=== PATIENT | male | born 1980 | race Caucasian/White ===

== ENCOUNTER 2023-06-30 10:22 | Emergency (ER) | payer OTHER, SELFPAY ==
[2023-06-30 10:24] VITALS: BP 116/85; PULSE 86; RESP 18; TEMP 36.3; O2SAT 100; BMI 29.0
--- NOTE | 2023-06-30 10:38 | CT_ITS ---
STUDY: CT ABDOMEN AND PELVIS WITH CONTRAST REASON FOR EXAM: Male, 43 years old. Left lower quadrant pain with localized peritonitis. RADIATION DOSAGE (If Supplied By Facility): CTDIvol = ( 15.08 ) mGy, DLP = ( 1099.53 ) mGycm TECHNIQUE: Transaxial images were obtained from the dome of the diaphragm to the symphysis pubis without oral contrast. IV 100mL Isovue-300 was administered. Sagittal and coronal images were reconstructed. Individualized dose optimization techniques were used for this CT. COMPARISON: None. FINDINGS: The visualized lung bases are unremarkable. The visualized portions of the heart are within normal limits. Normal liver. Normal gallbladder and extrahepatic biliary system. Normal spleen. Normal pancreas. Normal bilateral adrenal glands. Normal right kidney. Normal left kidney. Normal visualized stomach. There is evidence of a circumferential wall thickening of several small bowel loops in the left mid abdomen and left lower quadrant suggestive of possible enteritis. Mild degree of increased markings in the small bowel mesentery. Fluid-filled distal small bowel loops. Normal colon. The appendix is visualized and appears normal. Normal abdominal aorta. Normal inferior vena cava. There is borderline retroperitoneal lymphadenopathy with enlarged nodes no greater than 10mm in the short axis diameter. Normal urinary bladder. There is a small umbilical hernia containing fat. 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 CT/Abdomen/Pelvis W IV Cont ONLY IMPRESSION: Findings suggestive of possible enteritis although several small bowel loops in left mid and left lower quadrant as described with increased markings in the surrounding mesenteric fat. Enteritis should be ruled out. Electronically Signed: Luis Mancilla MD at 11:31 EDT ,
--- NOTE | 2023-06-30 10:40 | EDS_ITS ---
HPI History of Present Illness Chief Complaint: Abd Pain Detail of Chief Complaint: Lower/left lower quadrant abdominal pain Informant: patient and spouse/S.O. Onset/Context/Timing Onset: Days Context: Gradual Onset Timing: Continuous Quality: Discomfort/fullness Location: Left lower quadrant Current Severity: Mild Maximum Severity: Moderate Worsened by: Walking Relieved by: Nothing Associated Symptoms Associated Symptoms: Nausea Narrative Narrative: Patient is a 43-year-old male with history of GERD on omeprazole. Did not take his dose of omeprazole today. Went to urgent care. He was sent from urgent care to the emergency room to rule out obstruction. He has had no prior abdominal surgery. He denies vomiting. He is still passing gas and having bowel movements. He states his last bowel movement was mushy . He denies blood or mucus in his stool. His abdominal discomfort started Wednesday. It was bilateral. It is now predominantly left lower quadrant. He thought it was due to him working outside this past weekend. He states he did not do much on Wednesday other than lie on the couch. He states his appetite is diminished. He did have a documented temperature of 100.9 on Wednesday. He has not taken his temperature since. He denies history of renal ureterolithiasis. He denies history of diverticulosis or diverticulitis. He denies intolerance to any types of food. Maternal grand had cholelithiasis. Prior similar symptoms: No Recent Illness/Hospitalization: No PFSH PFSH Medical History no medical history no medical history Home Medications ondansetron 4 mg disintegrating tablet 4 mg PO Q8H PRN PRN Nausea #6 tabs 06/30/23 [Rx Last Taken Unknown] Allergy/AdvReac Type Severity Reaction Status Date / Time No Known Allergies Allergy Verified 06/30/23 10:25 Surgical History no surgical history no surgical history Social History (Updated 06/30/23 @ 10:[address] Raj Bates MD) household members: spouse Smoking Status: Never smoker substance use type: does not use ROS ROS ED Constitutional Constitutional ED: Reports fever(s); Denies chills, subjective or sweats Eyes Eyes: Denies blurry vision, change in vision or diplopia ENT ENT ED: Denies ear pain, rhinorrhea or sore throat Cardiovascular Cardiovascular: Denies chest pain, orthopnea, palpitations, paroxysmal nocturnal dyspnea or racing heartbeat Respiratory/Chest Respiratory/Chest: Denies cough, dyspnea, dyspnea on exertion, orthopnea or paroxysmal nocturnal dyspnea Gastrointestinal Gastrointestinal: Reports abdominal pain, nausea and vomiting; Denies constipation, diarrhea or melena Genitourinary Genitourinary ED: Denies dysuria, hematuria or urinary frequency Musculoskeletal Musculoskeletal: Denies arthralgias, back pain, myalgias or neck pain Integumentary Denies rash Endocrine Endocrinology: Denies cold intolerance or heat intolerance Hematologic/Lymphatic Hematologic/Lymphatic: Reports systems reviewed and no addt'l complaints, except as documented EXAM Physical Exam Const Vital Signs: 06/30/23 10:24 Temperature 97.3 F L Temperature Source Temporal Pulse Rate 86 Respiratory Rate 18 Blood Pressure 116/85 H Blood Pressure Mean 95 Pulse Ox 100 Oxygen Delivery Method Room Air Positive well nourished and well developed Constitutional Narrative: Patient does not appear in distress; however, he does not appear well. General Appearance ED: well developed and NAD; Negative for cyanotic or diaphoretic HEENT Reports dry mucous membranes HEENT Narrative: Head is normocephalic and atraumatic. Ears normal. Nares patent. Posterior pharynx is normal. Mouth ED: Yes dry mucous membranes Mouth: dry mucous membranes Eyes PERRL and EOMs intact bilaterally General Eye ED: Negative for scleral icterus Neck no lymphadenopathy, supple and no JVD Chest Wall inspection of chest normal and palpation of chest normal Resp normal respiratory effort and clear to auscultation bilaterally Cardio regular rate, regular rhythm, S1 normal heart sound, S2 normal heart sound and no murmurs GI non-distended and no masses; Negative for non-tender or hepatosplenomegaly Inspection: Negative for abdominal distention Auscultation: hypoactive bowel sounds Palpation: soft, tender LLQ, guarding LLQ and rebound tenderness present other (Question of mild peritoneal irritation left lower quadrant.); Negative for splenomegaly or mass Back/Spine no CVA tenderness Extremity normal to inspection General Extremety ED: Negative for edema or tenderness General Extremity: Negative for edema Neuro oriented x3, CN's II-XII intact bilaterally and no sensory deficits noted Sensorium / Orientation: alert Psych mental status grossly normal Skin no rashes or lesions noted, no wounds and skin turgor normal General Skin Exam: elasticity normal MDM MDM MDM Narrative Medical decision making narrative: With fever, nausea left lower quadrant pain with guarding and questionable peritoneal findings concern patient may have diverticulitis. Based on patient's ability to have bowel movements pass gas and not vomiting partial/complete bowel obstruction is not a consideration. This may also represent atypical appendicitis. Other possibilities may be colitis since he is now complaining of mushy stool. Appropriate blood work was obtained. He was treated with Zofran for his nausea and morphine for his pain and given 1 L of normal saline since his tongue is dry and clinically he is dehydrated. Lab Data Labs: Laboratory Results - last 24 hr 06/30/23 10:40 WBC 4.6 RBC 4.71 Hgb 14.7 Hct 40.9 MCV 86.8 MCH 31.2 MCHC 35.9 RDW Std Deviation 39.4 RDW Coeff of Serg 12.3 Plt Count 220 MPV 10.4 Immature Gran % (Auto) 0.000 Neut % (Auto) 54.7 Lymph % (Auto) 26.7 [place] % (Auto) 17.7 H Eos % (Auto) 0.7 Baso % (Auto) 0.2 Absolute Neuts (auto) 2.5 Absolute Lymphs (auto) 1.22 Nucleated RBC % 0 Sodium 140 Potassium 3.5 Chloride 108 H Carbon Dioxide 28.0 Anion Gap 4 L BUN 12 Creatinine 1.06 Estim Creat Clear Calc 97.61 Est GFR (MDRD) Af Amer 97 Est GFR (MDRD) Non-Af 81 BUN/Creatinine Ratio 11.3 Glucose 109 H Calcium 8.5 Radiography Diagnostic Testing: Clinical Impression(s) from Imaging Studies Abdomen/Pelvis CT 06/30/23 10:38 IMPRESSION: Findings suggestive of possible enteritis although several small bowel loops in left mid and left lower quadrant as described with increased markings in the surrounding mesenteric fat. Enteritis should be ruled out. Electronically Signed: Luis Mancilla MD at 11:31 EDT , Treatment and Re-Evaluation :: For informed of results. Plan is to discharge home with antiemetic. He states he received a work excuse from the urgent care. Discharge Plan Triage Chief Complaint: Abd Pain ED Provider: Nicole Bateso Dx/Rx/DC Orders Clinical Impression: Fever, Enteritis, Dehydration, mild, Nausea & vomiting, Abdominal pain, acute, bilateral lower quadrant Instructions: ED Understanding Colitis Prescriptions: New ondansetron [ondansetron] 4 mg tablet,disintegrating 4 mg PO Q8H PRN PRN (Reason: Nausea) Qty: 6 0RF Primary Care Provider: Maximino Gonsales Referrals: Maximino Gonsales MD [Primary Care Provider] - 3-5 Days if not improving NOT,DEFINED [Non-Staff] - Disposition Disposition: Home, Self Care
[2023-06-30] MEDS: Morphine 4 MG/ML Syringe IV (10:51)
[2023-06-30] MEDS: 0.9% Normal Saline 1,000 ML 1000 ML IV (10:51)
[2023-06-30 10:52] LABS: Absolute Lymphocyte Count 1.22 X10^3/uL (0.83-4.51); Absolute Neutrophil Count 2.5 X10^3/uL (2.0-7.7); Basophil# 0.01 X10^3/uL; Basophil% 0.2 % (0-1); Eosinophil# 0.03 X10^3/uL; Eosinophils% 0.7 % (0-5); Hematocrit 40.9 % (40-54); Hemoglobin 14.7 g/dL (13.0-16.5); Lymphocyte # 1.22 X10^3/ul (0.83-4.51); Lymphocyte % 26.7 % (19-41); Mean Corp Hgb Conc 35.9 g/dL (32-36); Mean Corpuscular Hgb 31.2 pg (27.0-32.0); Mean Corpuscular Volume 86.8 fL (80-94); Mean Platelet Vol. 10.4 fl (6.2-12.0); Monocyte# 0.81 X10^3/uL; Monocyte% 17.7 % (0-10); NRBC Flagged by Analyzer 0 % (0-5); Neutrophil % 54.7 % (47-70); Platelet Count 220 K/mm3 (150-450); RBC Distribution Width CV 12.3 % (11.6-14.6); RBC Distribution Width SD 39.4 fl (35.1-43.9); Red Blood Count 4.71 M/mm3 (4.6-6.2); White Blood Count 4.6 K/mm3 (4.4-11.0)
[2023-06-30] MEDS: Ondansetron 4 MG/2 ML Vial IV (10:52)
[2023-06-30 11:05] LABS: Anion Gap 4 (5-15); BUN 12 mg/dL (7-18); BUN/Creat Ratio 11.3 RATIO (10-20); Calcium,Total 8.5 mg/dL (8.5-10.1); Chloride 108 mmol/L (98-107); Creatinine, Serum 1.06 mg/dL (0.70-1.30); EST Glomerular Filtration Rate 81 mL/min (>60); Est Glom Filt Rate - Afr Amer 97 mL/min (>60); Estimated Creatinine Clearance 97.61 ml/min; Glucose 109 mg/dL (74-106); Potassium 3.5 mmol/L (3.5-5.1); Sodium Level 140 mmol/L (136-145)
[2023-06-30 11:58] VITALS: BP 128/70; PULSE 66; RESP 16
== END 2023-06-30 11:59 | disposition home or self-care (01) ==
PROVIDERS: Emergency Provider Emergency Medicine; PCP Family Medicine; Visit Provider Emergency Medicine
DX: K52.9 Noninfective gastroenteritis and colitis, unspecified (principal); E86.0 Dehydration; K21.9 Gastro-esophageal reflux disease without esophagitis; Z79.899 Other long term (current) drug therapy
CPT/HCPCS: 74177; 80048; 85025; 96361; 96374; 96375; 99282; J7030; Q9967; A4216; J2405